=== PATIENT | male | born 1960 | race Caucasian/White ===

== ENCOUNTER 2021-08-10 11:38 | Day surgery (SDC) | payer MEDICAID ==
[~2021-08-10] VITALS: Ht 180.3 cm; Wt 81.8 kg
[~2021-08-10 11:38] MED LIST: SODIUM CHLORIDE 0.9% 1,000 ML ONE
[2021-08-10] MEDS ORDERED: LIDOCAINE/PF 2% 5 ML VIAL IM ONE (11:39)
[2021-08-10] MEDS ORDERED: PROPOFOL 1% 20 ML VIAL IVP ONE (11:39)
[2021-08-10] MEDS ORDERED: SODIUM CHLORIDE 0.9% 1,000 ML IV ONE (12:00)
[2021-08-10 12:18] LABS: COVID AG,FIA SOURCE NASAL SWAB
== END 2021-08-10 15:35 | disposition home or self-care (01) ==
LOC: SURGERY 11:38
PROVIDERS: ATTEND Student in an Organized Health Care Education/Training Program
DX: K62.1 Rectal polyp (principal); K64.8 Other hemorrhoids; K57.30 Diverticulosis of large intestine without perforation or abscess without bleeding; I10 Essential (primary) hypertension; K21.9 Gastro-esophageal reflux disease without esophagitis; Z80.0 Family history of malignant neoplasm of digestive organs; Z72.89 Other problems related to lifestyle; Z79.899 Other long term (current) drug therapy; Z98.890 Other specified postprocedural states
CPT/HCPCS: 45380; 87426; C9803; J2704; J3490; J7030; 88305

== ENCOUNTER 2021-09-27 09:06 | Day surgery (SDC) | payer MEDICAID ==
[~2021-09-27] VITALS: Ht 180.3 cm; Wt 86.4 kg
[~2021-09-27 09:06] MED LIST changes: +AMLO5TAB66 PO; +LISI40TA9 PO
[2021-09-27] MEDS ORDERED: SODIUM CHLORIDE 0.9% 1,000 ML IV ONE (10:00)
[2021-09-27 10:10] LABS: COVID AG,FIA SOURCE NASOPHARYNGEAL
[2021-09-27] MEDS ORDERED: PROPOFOL 1% 20 ML VIAL IVP ONE (12:00)
[2021-09-27] MEDS ORDERED: LIDOCAINE/PF 2% 5 ML VIAL IM ONE (12:00)
== END 2021-09-27 13:05 | disposition home or self-care (01) ==
LOC: SURGERY 09:06
PROVIDERS: ATTEND Student in an Organized Health Care Education/Training Program
DX: K21.00 Gastro-esophageal reflux disease with esophagitis, without bleeding (principal); K29.50 Unspecified chronic gastritis without bleeding; K44.9 Diaphragmatic hernia without obstruction or gangrene; K22.2 Esophageal obstruction; K25.9 Gastric ulcer, unspecified as acute or chronic, without hemorrhage or perforation; K26.9 Duodenal ulcer, unspecified as acute or chronic, without hemorrhage or perforation; K31.89 Other diseases of stomach and duodenum; I10 Essential (primary) hypertension; Z87.891 Personal history of nicotine dependence; Z72.89 Other problems related to lifestyle; Z79.899 Other long term (current) drug therapy; Z88.6 Allergy status to analgesic agent; Z98.890 Other specified postprocedural states
CPT/HCPCS: 43239; 87426; 88305; 88312; 88313; C9803; J2704; J3490; J7030